=== PATIENT | female | born 1995 | race Two or more races ===

== ENCOUNTER → 2018-10-07 | Outpatient (CLI) | payer OTHER | END | disposition home or self-care (01) | LOC: Rad HDHVI 11:26 | PROVIDERS: ATTEND Internal Medicine Cardiovascular Disease | DX: S99.922A Unspecified injury of left foot, initial encounter (principal); X58.XXXA Exposure to other specified factors, initial encounter; Y93.89 Activity, other specified; Y92.89 Other specified places as the place of occurrence of the external cause; Y99.8 Other external cause status | CPT/HCPCS: 73630 ==

== ENCOUNTER → 2019-04-12 | Outpatient (CLI) | payer OTHER | END | disposition home or self-care (01) | LOC: LAB 10:50 | PROVIDERS: ATTEND Preventive Medicine Preventive Medicine/Occupational Environmental Medicine | DX: Z02.1 Encounter for pre-employment examination (principal) | CPT/HCPCS: 36415; 86706; 86735; 86762; 86765; 86787 ==

== ENCOUNTER → 2020-05-10 | Outpatient (CLI) | payer OTHER | END | disposition home or self-care (01) | LOC: LAB 11:02 | PROVIDERS: ATTEND Nurse Practitioner Family | DX: U07.1 COVID-19 (principal) | CPT/HCPCS: C9803; U0003 ==

== ENCOUNTER → 2021-10-10 | Outpatient (CLI) | payer BC ==
[2021-10-10 08:21] LABS: Basophils # (auto) 0 10 ^3/uL (0-0.2); Basophils % (auto) 0.4 % (0.0-2.0); Eosinophils # (auto) 0.1 10 ^3/uL (0-0.8); Eosinophils % (auto) 0.8 % (0.0-7.0); Hematocrit 41.6 % (36.0-46.0); Hemoglobin 13.9 g/dL (12.2-16.2); Lymphocytes # (auto) 2.4 10 ^3/uL (0.4-5.4); Lymphocytes % (auto) 38.6 % (10.0-50.0); Mean Corpuscular Hemoglobin 27.9 pg (28.0-32.0); Mean Corpuscular Hgb Conc. 33.5 g/dL (32.0-36.0); Mean Corpuscular Volume 83.4 fL (80.0-100.0); Monocytes # (auto) 0.3 10 ^3/uL (0-1.3); Monocytes % (auto) 4.5 % (0.0-12.0); Neutrophils # (auto) 3.5 10 ^3/uL (1.6-8.6); Neutrophils % (auto) 55.7 % (37.0-80.0); Nucleated Red Blood Cells % 0.2 %; Red Blood Cells 4.99 10^6/uL (4.0-5.20); Red Cell Distribution Width 13.9 % (11.8-14.3); White Blood Cell 6.3 10^3/uL (4.4-10.8)
[2021-10-10 08:43] LABS: Calcium 8.9 mg/dL (8.5-10.1); Potassium 3.6 mmol/L (3.5-5.1)
[2021-10-10 08:49] LABS: Albumin 3.5 g/dL (3.4-5.0); BUN/Creatinine Ratio 14.8; Bilirubin, Total 0.3 mg/dL (0.2-1.0); Total Protein 7.5 g/dL (6.4-8.2)
== END | disposition home or self-care (01) ==
LOC: LAB 07:47
PROVIDERS: ATTEND Nurse Practitioner Family
DX: Z00.00 Encounter for general adult medical examination without abnormal findings (principal); K90.0 Celiac disease; N92.6 Irregular menstruation, unspecified; R53.83 Other fatigue
CPT/HCPCS: 36415; 80053; 84439; 84443; 85025

== ENCOUNTER 2025-01-10 10:50 | Day surgery (SDC) | payer BC ==
[2025-01-05 12:08] LABS: INR 1.01 (0.9-1.15); Partial Thromboplastin Time 30.2 SEC (24.5-34.5); Prothrombin Time 10.7 sec (9.3-11.8)
[2025-01-05 12:12] LABS: Hematocrit 44.7 % (36.0-46.0); Hemoglobin 14.7 g/dL (12.2-16.2); Mean Corpuscular Hemoglobin 27.3 pg (28.0-32.0); Mean Corpuscular Volume 83.1 fL (80.0-100.0); Nucleated Red Blood Cells % 0.1 %
[2025-01-05 12:53] LABS: Albumin 4.5 g/dL (3.2-4.8); Alkaline Phosphatase 81 U/L (46-116); Anion Gap 7 (5-15); BUN/Creatinine Ratio 14.5 (10.0-20.0); Bilirubin, Total 0.6 mg/dL (0.2-1.0); Blood Urea Nitrogen 12 mg/dL (9-23); Calcium 9.4 mg/dL (8.7-10.4); Carbon Dioxide 26 mmol/L (20-31); Chloride 106 mmol/L (98-107); Glucose 95 mg/dL (74-106); Potassium 4.4 mmol/L (3.5-5.1); Sodium 139 mmol/L (136-145); Total Protein 7.3 g/dL (5.7-8.2)
[2025-01-05 12:57] LABS: Alanine Aminotransferase < 9 U/L (7-40)
[~2025-01-10] VITALS: Ht 170.2 cm; Wt 111.1 kg
[~2025-01-10 10:50] MED LIST: BIOT5TAB3 PO
[2025-01-10] MEDS ORDERED: PHENYLEPHRINE INJ 10 MG/ML 5ML VIAL IV ONE (10:51)
[2025-01-10] MEDS ORDERED: PHENYLEPHRINE HCL 10 MG/ML VL IV ONE (10:51)
[2025-01-10] MEDS: ACETAMINOPHEN IV 1000 MG/100ML (10MG/ML) IV ONE (11:00)
[2025-01-10] MEDS: GABAPENTIN 300 MG CAP PO ONE (11:00)
[2025-01-10] MEDS: CELECOXIB 100 MG CAP PO ONE (11:00)
[2025-01-10] MEDS ORDERED: BUPIVACAINE 0.5% P/F INJ 10 ML VIAL ONE (11:36)
[2025-01-10] MEDS ORDERED: KETAMINE 50mg/ML 1ml syringe ONE (12:00)
[2025-01-10] MEDS ORDERED: fentaNYL CITRATE 100 MCG/2 ML VL ONE (12:01)
[2025-01-10] MEDS ORDERED: ONDANSETRON HCL 4 MG/2 ML VIAL ONE (12:01)
[2025-01-10] MEDS ORDERED: LIDOCAINE 2% (LOCAL ANESTH.) PF 5ml SDV ONE (12:01)
[2025-01-10] MEDS ORDERED: PROPOFOL 10 MG/ML 20 ML IV ONE ×2 (12:01→12:13)
[2025-01-10] MEDS ORDERED: KETOROLAC TROMETH 30 MG/ML 1ML VIAL ONE (12:01)
[2025-01-10] MEDS ORDERED: GLYCOPYRROLATE 0.2 MG/ML 1ML VIAL ONE (12:01)
[2025-01-10] MEDS: ceFAZolin 2 GM/D5W50ml 50 ML IV ONE (12:10)
[2025-01-10 13:02] VITALS: TEMP 97.7; O2SAT 100
--- NOTE | 2025-01-10 13:08 | DVHOP2 ---
Operative Report - 2 Report Details Date: 01/10/25 Preop Diagnosis: 1. Left foot sands fracture 2. Left foot pain Postop Diagnosis: Same as preop Surgeon: Dario Kerns MD Anesthesiologist: See anesthesia Anesthesia: General Implant: Arthrex 5.5 x 40mm screw Consent: The patient was informed of the risks and benefits of the procedure. These include but are not limited to complications of anesthesia, postoperative infection, incomplete relief of symptoms, recurrence of symptoms, damage to blood vessels, nerves and tendons, deep venous thrombosis, pulmonary embolism and possible need for repeat surgery in the future. Complications: None Estimated Blood Loss: Minimal Fluids: See anesthesia Findings: Consistent with the diagnosis Indications for Surgery: Worsening left foot pain Name of Procedure Performed 1. Left foot sands fracture ORIF (70085) Procedure Details Procedure Details: PRE-PROCEDURE INFORMATION: In the pre-op holding area, the extremity to be operated on was clearly marked and the patient verified correct laterality of the marking. The patient was transferred to the OR table and placed in a supine position. A timeout was performed in which identification of the correct patient, procedure, location, and materials was done. The left foot and leg were prepped and draped in normal sterile fashion. DESCRIPTION OF PROCEDURE: Attention was directed to the left lateral foot where a stab incision was made approximately 3 cm in the base of the 5th metatarsal. The incision was deepened through blunt and sharp dissection. Care was taken throughout the dissection to avoid damage to neurovascular and tendinous structures. Hemostasis was achieved via electrocautery. Incision was deepened to the level of the periosteum. A K-wire was placed from the base of the metata rsal to the shaft of the bone, across fracture fragment. A drill was then used over the K-wire pass the fracture site. Using a 5.5 cannulated tap, the 5th metatarsal was then tapped past the fracture line. A 5.5 partially-threaded solid screw was then placed into the 5th metatarsal so as the threads were just past the fracture line. It was noted on fluoroscopy that there was maintain good and adequate position of the fracture fragment and the fracture was adequately reduced. All surgical wounds were irrigated copiously with saline and closed in layers with the aforementioned suture material. A dry sterile dressing was placed on the surgical extremity. The patient was placed in a cam boot. POSTOPERATIVE INFORMATION: The patient tolerated the above noted procedure and anesthesia well and was transferred to the PACU with vital signs stable, and vascular status intact with capillary refill intact to all digits. Postoperative instructions reviewed in detail with the patient with written instructions provided. Patient will return to clinic in approximately 10-14 days for first postoperative visit. Patient has the number of the clinic and was instructed to call prior to that time should any problems, questions, or concerns arise. Condition Good Disposition Home DARIO KENRS DPM Jan 10, 2025 13:08
[2025-01-10] MEDS ORDERED: NALOXONE HCL 0.4 MG/ML VIAL IV PRN (13:15)
[2025-01-10] MEDS ORDERED: hydrALAZINE HCL 20 MG/ML VL IV PRN (13:15)
[2025-01-10] MEDS ORDERED: FLUMAZENIL 0.1 MG/ML INJ 10ML MDV IV PRN (13:15)
[2025-01-10] MEDS ORDERED: fentaNYL CITRATE 100 MCG/2 ML VL IV PRN (13:15)
[2025-01-10] MEDS ORDERED: ONDANSETRON HCL 4 MG/2 ML VIAL IV PRN (13:15)
[2025-01-10] MEDS ORDERED: HYDROmorphone HCL 2 MG/ML VL/or syr ONE (13:27)
[2025-01-10] MEDS: HYDROmorphone HCL 2 MG/ML VL/or syr IV PRN (13:27)
[2025-01-10 14:17] VITALS: BP 105/48; PULSE 76; RESP 16; O2SAT 99
== END 2025-01-10 14:35 | disposition home or self-care (01) ==
LOC: SUR 10:50
PROVIDERS: ATTEND Podiatrist
DX: S92.352A Displaced fracture of fifth metatarsal bone, left foot, initial encounter for closed fracture (principal); W08.XXXA Fall from other furniture, initial encounter; Y93.89 Activity, other specified; Y92.89 Other specified places as the place of occurrence of the external cause; Y99.8 Other external cause status
CPT/HCPCS: 28485; 36415; 80053; 84702; 85025; 85610; 85730; C1713; J0169; J0690; J1100; J1171; J1885; J2003; J2371; J2405; J2704; J3010; J0131; J2370; J3490